=== PATIENT | female | born 2000 | race African-American/Black ===

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

== ENCOUNTER 2019-02-23 19:34 | Emergency (ER) | payer SELFPAY ==
[~2019-02-23] VITALS: Ht 162.6 cm; Wt 51.4 kg
[~2019-02-23 19:34] MED LIST changes: +IBU800 M1 PO
[2019-02-23 19:36] VITALS: BP 121/78; TEMP 97.9
[2019-02-23 20:15] LABS: COLLECTION METHOD CLEAN CATCH
[2019-02-23 20:30] LABS: MUCOUS Present /lpf; PH 6 (5-8); SQUAMOUS EPITHELIAL 0-2 /hpf; URINE APPEARANCE Clear; URINE BACTERIA None Seen /hpf; URINE BILIRUBIN Negative (NEGATIVE); URINE BLOOD Negative (NEGATIVE); URINE COLOR Yellow; URINE GLUCOSE Negative (NEGATIVE); URINE KETONE Trace (NEGATIVE); URINE LEUKOCYTE ESTERASE Negative (NEGATIVE); URINE NITRATE Negative (NEGATIVE); URINE PROTEIN(semi-quant) Negative (NEGATIVE); URINE RBC None Seen /hpf; URINE UROBILINOGEN Negative (NEGATIVE)
[2019-02-23 20:34] LABS: STREP SCREEN NEGATIVE
[2019-02-23] MEDS ORDERED: CEPHALEXIN500 M1 PO (21:12)
[2019-02-23 21:19] VITALS: PULSE 86
== END 2019-02-23 21:20 | disposition home or self-care (01) ==
LOC: COL.ER 19:34
PROVIDERS: Emergency Medicine
DX: J02.9 Acute pharyngitis, unspecified (principal)

== ENCOUNTER 2019-06-27 08:43 | Emergency (ER) | payer SELFPAY ==
[~2019-06-27] VITALS: Ht 162.6 cm; Wt 49.9 kg
[2019-06-27 08:45] VITALS: TEMP 99.2
[2019-06-27] MEDS ORDERED: FLEXERIL 1010 MG/TAB PO (08:57)
[2019-06-27 10:00] VITALS: BP 132/95; PULSE 73
== END 2019-06-27 10:10 | disposition home or self-care (01) ==
LOC: COL.ER 08:43
PROVIDERS: Emergency Medicine
DX: S70.01XA Contusion of right hip, initial encounter (principal); V47.5XXA Car driver injured in collision with fixed or stationary object in traffic accident, initial encounter

== ENCOUNTER 2019-11-07 11:12 | Emergency (ER) | payer SELFPAY ==
[~2019-11-07] VITALS: Ht 160 cm; Wt 50.0 kg
[~2019-11-07 11:12] MED LIST changes: +FLEXERIL 1010 MG/TAB PO
[2019-11-07 11:30] VITALS: BP 115/69
[2019-11-07 13:21] LABS: COLLECTION METHOD CLEAN CATCH
[2019-11-07 13:36] LABS: MUCOUS Present /lpf; PH 6 (5-8); URINE APPEARANCE Clear; URINE BACTERIA None Seen /hpf; URINE BILIRUBIN Negative (NEGATIVE); URINE BLOOD Negative (NEGATIVE); URINE COLOR Yellow; URINE GLUCOSE Negative (NEGATIVE); URINE KETONE Negative (NEGATIVE); URINE LEUKOCYTE ESTERASE Trace (NEGATIVE); URINE NITRATE Negative (NEGATIVE); URINE PROTEIN(semi-quant) 1+ (NEGATIVE)
[2019-11-07 14:00] VITALS: PULSE 85; TEMP 99.1
[2019-11-07] MEDS ORDERED: CEPHALEXIN500 M1 PO (14:13)
== END 2019-11-07 14:20 | disposition home or self-care (01) ==
LOC: COL.ER 11:12
PROVIDERS: Physician Assistant
DX: N39.0 Urinary tract infection, site not specified (principal); B34.9 Viral infection, unspecified; F17.210 Nicotine dependence, cigarettes, uncomplicated; J45.909 Unspecified asthma, uncomplicated

== ENCOUNTER 2019-12-16 13:48 | Emergency (ER) | payer SELFPAY ==
[~2019-12-16] VITALS: Ht 162.6 cm; Wt 50.0 kg
[2019-12-16 14:08] VITALS: BP 124/74; PULSE 90; TEMP 97
== END 2019-12-16 14:55 | disposition home or self-care (01) ==
LOC: COL.ER 13:48
DX: T74.21XA Adult sexual abuse, confirmed, initial encounter (principal)

== ENCOUNTER 2020-04-04 03:02 | Emergency (ER) | payer MEDICAID ==
[~2020-04-04] VITALS: Ht 160 cm; Wt 54.5 kg
[2020-04-04 03:07] VITALS: BP 118/85; TEMP 98.4
[2020-04-04 03:50] LABS: BASO % 0.3 % (0.0-2.0); EOS # 0.1 (0.0-0.7); EOS % 0.6 % (0-4.0); GRAN # 6.4 (1.4-6.5); GRAN % 59.4 % (42.2-75.2); HEMOGLOBIN 12.3 g/dl (12.5-16.0); LYMPH # 3.1 (1.2-3.4); LYMPH % 28.9 % (20.0-51.0); MEAN CELL VOLUME 83 fl (80.0-100.0); MEAN CORPUSCULAR HEMOGLOBIN 28 pg (27.0-31.0); MEAN CORPUSCULAR HGB CONC 34 g/dl (33.0-37.0); MEAN PLATELET VOLUME 10.1 fl (7.4-10.4); MONO # 1.1 (0.1-0.6); MONO % 10.5 % (1.7-9.3); PLATELET COUNT 301 K/mm3 (130-400); RED BLOOD COUNT 4.35 M/mm3 (4.10-5.30); REDCELL DISTRIBUTION WIDTH-CV 12.1 % (11.5-14.5)
[2020-04-04 03:52] LABS: HEMATOCRIT 35.9 % (37.0-47.0)
[2020-04-04 04:01] LABS: ALBUMIN 4.5 gm/dL (3.5-5.0); BILIRUBIN,TOTAL 0.4 mg/dL (0.0-1.0); CALCIUM 9.4 mg/dL (8.4-10.2); CREATININE, serum 0.65 (0.52-1.25); POTASSIUM 3.5 mmol/L (3.4-5.0); TOTAL PROTEIN 8.2 gm/dL (6.4-8.2)
[2020-04-04 05:00] LABS: COLLECTION METHOD CLEAN CATCH
[2020-04-04 05:05] LABS: MUCOUS Present /lpf; PH 6 (5-8); SQUAMOUS EPITHELIAL 0-2 /hpf; URINE APPEARANCE Hazy; URINE BACTERIA None Seen /hpf; URINE BILIRUBIN Negative (NEGATIVE); URINE BLOOD Negative (NEGATIVE); URINE COLOR Yellow; URINE GLUCOSE Negative (NEGATIVE); URINE KETONE 1+ (NEGATIVE); URINE LEUKOCYTE ESTERASE Trace (NEGATIVE); URINE NITRATE Negative (NEGATIVE); URINE PROTEIN(semi-quant) Negative (NEGATIVE); URINE UROBILINOGEN Negative (NEGATIVE)
[2020-04-04 05:27] VITALS: PULSE 87
== END 2020-04-04 05:28 | disposition home or self-care (01) ==
LOC: COL.ER 03:02
PROVIDERS: Emergency Medicine
DX: O26.891 Other specified pregnancy related conditions, first trimester (principal); R10.2 Pelvic and perineal pain
CPT/HCPCS: J2405; J7030

== ENCOUNTER → 2020-07-07 | Outpatient (CLI) | payer MEDICAID | LOC: ZCOL.LAB 16:29 | DX: Z20.828 Contact with and (suspected) exposure to other viral communicable diseases (principal) ==

== ENCOUNTER 2020-09-28 16:41 | Outpatient (CLI) | payer MEDICAID ==
[~2020-09-28] VITALS: Ht 157.5 cm; Wt 60.0 kg
[2020-09-28 16:50] VITALS: BP 110/69; PULSE 90; TEMP 97.9
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
[2020-09-28] MEDS ORDERED: ZOLOFT 50MG50 MG PO (16:56)
--- NOTE | 2020-09-28 17:10 | NUR ---
FHT'S WITH MODERATE VARIABILITY AND ACCELS. PT DENIES CRAMPING OR CONTRACTIONS, STATES SHE IS JUST SORE ALL ACROSS HER PELVIS AND BACK. SVE BY ERIC EASTMAN, CLOSED/THICK/HIGH. PHONED DR GARCÍA AT 1710 WITH ABOVE INFORMATION AND DISCHARGE ORDER RECEIVED.
== END 2020-09-28 17:35 | disposition home or self-care (01) ==
LOC: LDRO 16:41 → LDR 16:47 → LDRO 17:35
DX: O9A.213 Injury, poisoning and certain other consequences of external causes complicating pregnancy, third trimester (principal); Z3A.31 31 weeks gestation of pregnancy; Z87.891 Personal history of nicotine dependence
CPT/HCPCS: OP

== ENCOUNTER 2020-11-19 07:07 | Inpatient (IN) | payer MEDICAID ==
[2020-11-19] VITALS (36 sets, daily range): BP systolic 100–142; BP diastolic 57–88; PULSE 67–95; TEMP 97.4–98.1
[~2020-11-19] VITALS: Ht 157.5 cm; Wt 67.3 kg
[~2020-11-19 07:07] MED LIST changes: +ZOLOFT 50MG50 MG PO
--- NOTE | 2020-11-19 07:10 | NUR ---
0710- PATIENT AMBULATORY TO THE UNIT WITH BOYFRIEND/FOB BY HER SIDE. ORIENTATED TO ROOM AND CHANGED INTO CLEAN GOWN. PATIENT REPORTS GFM, NO LOF, SOME BLOODY SHOW AND OCCASIONAL CONTRACTIONS. 0715- EFM AND TOCO ON AND TRACING. VITALS TAKEN, ASSESSMENT COMPLETED, IV STARTED, FLUIDS RUNNING. PLAN OF CARE DISCUSSED. PATIENT VERBALZIED UNDERSTANDING WITH NO FURTHER QUESTIONS OR CONCERNS. CALL LIGHT WITHIN REACH.
[2020-11-19 08:47] LABS: BASO % 0.3 % (0.0-2.0); EOS # 0.1 (0.0-0.7); GRAN # 6.6 (1.4-6.5); HEMOGLOBIN 10.5 g/dl (12.5-16.0); LYMPH # 2.4 (1.2-3.4); LYMPH % 23.1 % (20.0-51.0); MEAN CELL VOLUME 83 fl (80.0-100.0); MEAN CORPUSCULAR HEMOGLOBIN 28 pg (27.0-31.0); MEAN CORPUSCULAR HGB CONC 34 g/dl (33.0-37.0); MEAN PLATELET VOLUME 9.8 fl (7.4-10.4); MONO # 1.1 (0.1-0.6); PLATELET COUNT 257 K/mm3 (130-400); RED BLOOD COUNT 3.71 M/mm3 (4.10-5.30); REDCELL DISTRIBUTION WIDTH-CV 13.4 % (11.5-14.5)
[2020-11-19 08:48] LABS: HEMATOCRIT 30.9 % (37.0-47.0)
[2020-11-19 09:51] LABS: TRICYCLIC ANTIDEPRESS URINE NEGATIVE
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
[2020-11-20 00:30] VITALS: BP 104/71; PULSE 85; TEMP 98.1
[2020-11-20 08:45] VITALS: BP 123/89; PULSE 71; TEMP 98
[2020-11-20] MEDS ORDERED: IBU800 M1 PO (08:48)
[2020-11-20] MEDS ORDERED: PERCOCET 325 MG1 TA2 PO (08:49)
--- NOTE | 2020-11-20 09:13 | NUR ---
Initial visit; Parents thanked [employer] for offering congratulations and God's blessings for the of their son. [employer] thanked family for choosing [facility].
--- NOTE | 2020-11-20 10:25 | NUR ---
YING responded to consult. The patient has a history of marijuana use and her and the baby's UDS was positive for cannibinoids. YING met with the patient and the FOB, Roger Woodruff. The patient's room smelled of marijuana. The patient lives in [place] with Roger and her two other children. They are five and [id number]. The patient works at [employer]. She states that she last used marijuana three weeks ago and did edibles. She states that she did the edibles while she was in [place]. The patient reports no concerns about using marijuana again she she returns home. She was not interested in any resources for treatment. The patient also has a history of anxiety, depression, and bipolar. The patient states that she was feelilng down a couple months ago and informed her PCP, Dr. Kala Navarro. She states that Dr. Navarro follows and treats her for the anxiety, depression, and bipolar. The patient and Roger report no concerns with bringing baby home upon discharge. They state that they have a carseat. The patient states that she has not applied for WIC yet, but has the number to do so. She states that she does not have formula yet either for baby, but plans on getting some when she discharges. She states that she can afford the formula. The baby's cord blood is pending. YING made a CPS report. Intake ID#[id number]. YING updated the patient's RN on the above information. The judit
== END 2020-11-20 16:50 | disposition home or self-care (01) | DRG 806 ==
LOC: LDR 07:07 → OB 07:07
PROVIDERS: ADMIT Student in an Organized Health Care Education/Training Program
PROC: 10E0XZZ Delivery of Products of Conception, External Approach (ICD-10-PCS; principal; 2020-11-19)
PROC: 10907ZC Drainage of Amniotic Fluid, Therapeutic from Products of Conception, Via Natural or Artificial Opening (ICD-10-PCS; 2020-11-19)
PROC: 3E033VJ Introduction of Other Hormone into Peripheral Vein, Percutaneous Approach (ICD-10-PCS; 2020-11-19)
PROC: 0UQGXZZ Repair Vagina, External Approach (ICD-10-PCS; 2020-11-19)
DX: O36.5930 Maternal care for other known or suspected poor fetal growth, third trimester, not applicable or unspecified (principal); O71.4 Obstetric high vaginal laceration alone; Z37.0 Single live birth; O99.343 Other mental disorders complicating pregnancy, third trimester; F41.8 Other specified anxiety disorders; F32.9 Major depressive disorder, single episode, unspecified; O99.013 Anemia complicating pregnancy, third trimester; D64.9 Anemia, unspecified; O99.513 Diseases of the respiratory system complicating pregnancy, third trimester; J45.909 Unspecified asthma, uncomplicated; O77.0 Labor and delivery complicated by meconium in amniotic fluid; Z3A.38 38 weeks gestation of pregnancy
CPT/HCPCS: J2590; J2795; J7120

== ENCOUNTER 2023-12-08 10:22 | Emergency (ER) | payer SELFPAY ==
[~2023-12-08] VITALS: Ht 162.6 cm; Wt 54.5 kg
[2023-12-08 12:45] VITALS: TEMP 98.7
[2023-12-08] MEDS ORDERED: Methocarbamol 750 MG TAB PO ONE (14:00)
[2023-12-08] MEDS ORDERED: Acetaminophen 500 MG TAB PO ONE (14:00)
[2023-12-08] MEDS ORDERED: ROBAXIN 50500 MG/TAB PO (15:42)
[2023-12-08 16:15] VITALS: BP 123/85; PULSE 69
== END 2023-12-08 16:15 | disposition home or self-care (01) ==
LOC: COL.ER 10:22
DX: S09.90XA Unspecified injury of head, initial encounter (principal); V43.52XA Car driver injured in collision with other type car in traffic accident, initial encounter; Y92.411 Interstate highway as the place of occurrence of the external cause